=== PATIENT | male | born 1975 | race Caucasian/White ===

== ENCOUNTER 2024-02-04 16:11 | Emergency (ER) | payer SELFPAY ==
[2024-02-04 16:12] VITALS: BP 129/94; PULSE 85; RESP 16; TEMP 36.8; O2SAT 99
--- NOTE | 2024-02-04 17:12 | ED_ITS ---
HPI - Nausea/Vomiting/Diarrhea General Chief complaint: Nausea/Vomiting/Diarrhea Stated complaint: n/v, fever Time Seen by Provider: 02/04/24 17:12 Focused HPI: This is a 48 year old male that presents to the ER for abdominal pain. Ongoing over the last week intermittently. Reports anorexia, nausea, vomiting, chills. Reports subjective fever. Denies diarrhea, dysuria or hematuria. GENERAL: Well-appearing, well-nourished, and in no acute distress. HEAD: Normocephalic, atraumatic. CHEST: Clear to auscultation. ?No respiratory distress. HEART: Regular rate and rhythm.? NEURO: ?Alert and oriented x3. Patient screened in triage and initial orders placed.? ?Additional care and disposition to be based upon?diagnostic testing and treatment. Related Data Allergies Allergy/AdvReac Type Severity Reaction Status Date / Time No Known Allergies Allergy Unverified 09/07/17 16:44 Course Vital Signs Vital signs: Vital Signs Temperature 98.2 F 02/04/24 16:12 Pulse Rate 85 02/04/24 16:12 Respiratory Rate 16 02/04/24 16:12 Blood Pressure 129/94 H 02/04/24 16:12 Pulse Oximetry 99 02/04/24 16:12 Oxygen Delivery Room Air 02/04/24 16:12 Temperature 98.2 F 02/04/24 16:12 Pulse Rate 85 02/04/24 16:12 Respiratory Rate 16 02/04/24 16:12 Blood Pressure 129/94 H 02/04/24 16:12 Pulse Oximetry 99 02/04/24 16:12 Oxygen Delivery Room Air 02/04/24 16:12 MDM - Nausea/Vomiting/Diarrhea MDM Narrative Medical decision making narrative: Patient left after medical screening exam and before any further evaluation or management Discharge Plan Discharge Clinical Impression: Abdominal pain Patient Disposition: [facility] After Seen by Prov Condition: Stable Follow-up/Referrals: PHYSICIAN,DATABASE ADMINISTRATION PROJECT MANAGER [Primary Care Provider] -
== END 2024-02-04 20:47 | disposition left against medical advice (07) ==
PROVIDERS: Emergency Provider Physician Assistant
DX: R10.9 Unspecified abdominal pain (principal)
CPT/HCPCS: 99281